=== PATIENT | male | born 1970 | race Caucasian/White ===

== ENCOUNTER 2019-08-30 14:12 | Inpatient (IN) | payer MEDICAID, MEDICARE, OTHER ==
[~2019-08-30] VITALS: Ht 170.2 cm; Wt 81.0 kg
[~2019-08-30 14:12] MED LIST: FLUT16H NASAL; FURO20 PO; LACT30L PO; PALI6 PO; PROP10TA73 PO; RIFAX550 PO; THIA100T67 PO
[2019-08-30] MEDS ORDERED: FERR-89 PO (15:29)
[2019-08-30] MEDS ORDERED: PALI39DI IM (15:29)
[2019-08-30] MEDS ORDERED: SODIUM CHLORIDE 0.9% 1,000 ML IV ONE ×2 (16:00→20:30)
[2019-08-30 16:05] LABS: BASOPHILS % (AUTO) 2.3 % (0.0-2.0); EOSINOPHILS % (AUTO) 4.9 % (1.0-6.0); HEMATOCRIT 27.9 % (41-53); HEMOGLOBIN 8.9 g/dL (13.5-17.5); LYMPHOCYTES # (AUTO) 0.4 K/uL (1.0-4.8); LYMPHOCYTES % (AUTO) 15.8 % (22.0-44.0); MEAN CORPUSCULAR HEMOGLOBIN 28.1 pg (26.0-34.0); MEAN CORPUSCULAR VOLUME 88 fL (80-100); MONOCYTES # (AUTO) 0.3 K/uL (0.1-1.0); MONOCYTES % (AUTO) 14.1 % (2.0-9.0); NEUTROPHILS # (AUTO) 1.5 K/uL (1.8-7.7); NEUTROPHILS % (AUTO) 62.9 % (40.0-70.0); PLATELET COUNT (AUTO) 108 K/uL (150-450); RED BLOOD CELL COUNT(AUTO) 3.18 MIL/uL (4.50-5.90); RED CELL DISTRIBUTION WIDTH 18.4 % (11.5-14.5)
[2019-08-30 16:17] LABS: ANION GAP 9 mmol/L (8-16); CALCIUM, TOTAL 8.6 mg/dL (8.8-10.5); CARBON DIOXIDE 25 mmol/L (22-29); CHLORIDE 107 mmol/L (98-107); CREATININE 0.62 mg/dL (0.60-1.30); GLOMERULAR FILTR. RATE CALC > 60 mL/min (>60); GLUCOSE,RANDOM 104 mg/dL (70-110); POTASSIUM 4.3 mmol/L (3.5-5.1); SODIUM SERUM 141 mmol/L (136-145); UREA NITROGEN, BLOOD 18 mg/dL (7-18)
[2019-08-30 16:22] LABS: ALANINE AMINOTRANSFERASE 58 U/L (12-78); ALBUMIN 2.4 g/dL (3.4-5.0); ALKALINE PHOSPHATASE 223 U/L (46-116); ASPARTATE AMINOTRANSFERASE 48 U/L (15-37); BILIRUBIN,TOTAL 0.4 mg/dL (0.1-1.0); LIPASE 212 U/L (73-393); TOTAL PROTEIN, SERUM 6.6 g/dL (6.4-8.2)
[2019-08-30 16:30] LABS: INR 1.1 (0.9-1.1); PROTHROMBIN TIME 11.4 SEC (9.4-11.6)
[2019-08-30 17:07] LABS: APPEARANCE,URINE CLOUDY (CLEAR); BILIRUBIN,URINE NEGATIVE (NEGATIVE); GLUCOSE, URINE (UA) NEGATIVE (NEGATIVE); KETONES,URINE NEGATIVE (NEGATIVE); LEUKOCYTE ESTERASE ,URINE MODERATE (NEGATIVE); NITRATE,URINE POSITIVE (NEGATIVE); OCCULT BLOOD,URINE TRACE (NEGATIVE); PROTEIN,URINE NEGATIVE (NEGATIVE); UROBILINOGEN,URINE 0.2 mg/dL (<=1.0)
[2019-08-30] MEDS ORDERED: SODIUM CHLORIDE 0.9% 100 ML ONE (17:09)
[2019-08-30] MEDS ORDERED: IOVERSOL 350 MG/ML 100 ML VIAL ONE (17:09)
[2019-08-30 17:13] LABS: AMPHET/METH SCREEN,URINE NEGATIVE (NEGATIVE); BARBITURATE SCREEN, URINE NEGATIVE (NEGATIVE); BENZODIAZEPINES SCREEN,URINE NEGATIVE (NEGATIVE); CANNABINOID SCREEN,URINE NEGATIVE (NEGATIVE); COCAINE SCREEN,URINE NEGATIVE (NEGATIVE); METHADONE SCREEN, URINE NEGATIVE (NEGATIVE); OPIATE SCREEN,URINE NEGATIVE (NEGATIVE)
[2019-08-30 17:14] LABS: PHENCYCLIDINE SCREEN,URINE NEGATIVE (NEGATIVE)
[2019-08-30 17:19] LABS: BACTERIA,URINE Many /HPF (None Seen)
[2019-08-30 17:20] LABS: RBC,URINE 0-2 /HPF (0-2); SQUAMOUS EPITHELIAL CELL,UR Few /LPF (None Seen); WBC,URINE 51-100 /HPF (0-5)
[2019-08-30] MEDS ORDERED: SODIUM CHLORIDE 0.9% 2,200 ML IV ONE (17:41)
[2019-08-30] MEDS ORDERED: CefTRIAXone 1 GM/DEXTROSE 50 ML IV ONE (17:45)
[2019-08-30 18:37] LABS: LACTIC ACID 0.9 mmol/L (0.4-2.0)
[2019-08-30 18:49] LABS: INFLUENZA TYPE A NEGATIVE FOR TYPE A (NEGATIVE); INFLUENZA TYPE B NEGATIVE FOR TYPE B (NEGATIVE)
[2019-08-30] MEDS ORDERED: PANTOPRAZOLE SODIUM 80 MG in SODIUM CHLORIDE 0.9% 100 ML IV SCH (19:00)
[2019-08-30] MEDS ORDERED: PANTOPRAZOLE SODIUM 40 MG/VIAL IVP ONE (19:00)
[2019-08-30] MEDS ORDERED: ONDANSETRON HCL 4 MG/2 ML VIAL IVP PRN ×2 (20:30→22:45)
[2019-08-30] MEDS ORDERED: 0.9% SODIUM CHLORIDE 10 ML SYRINGE IVP PRN (20:30)
[2019-08-30 21:19] VITALS: BP 102/67
[2019-08-30] MEDS ORDERED: ALBUTEROL SULFATE 2.5 MG/0.5 ML NEB SOLUTION NEB PRN (22:45)
[2019-08-30] MEDS ORDERED: BISACODYL 10 MG RECTAL RECTAL SUPPOSITORY PR PRN (22:45)
[2019-08-30] MEDS ORDERED: LACTULOSE 20 GM/30 ML SOLUTION UDCUP PO PRN (22:45)
[2019-08-30] MEDS ORDERED: MAGNESIUM HYDROXIDE SUSPENSION 30 ML UDCUP PO PRN (22:45)
[2019-08-30] MEDS ORDERED: IPRATROPIUM BROMIDE 0.5 MG/2.5 ML NEB SOLUTION NEB PRN (22:45)
[2019-08-30] MEDS: RIFAXIMIN 550 MG TABLET PO SCH (23:38)
[2019-08-30] MEDS: OCTREOTIDE ACETATE 500 MCG in DEXTROSE 5%-WATER 97.5 ML IV SCH (23:42)
[2019-08-31 00:08] LABS: HEMATOCRIT 28.3 % (41-53); HEMOGLOBIN 9.1 g/dL (13.5-17.5)
[2019-08-31 00:59] VITALS: BP 90/61
[2019-08-31 05:45] VITALS: BP 100/66
[2019-08-31 07:06] LABS: ALANINE AMINOTRANSFERASE 52 U/L (12-78); ALBUMIN 2.2 g/dL (3.4-5.0); ALKALINE PHOSPHATASE 174 U/L (46-116); ANION GAP 8 mmol/L (8-16); ASPARTATE AMINOTRANSFERASE 47 U/L (15-37); BILIRUBIN,TOTAL 0.7 mg/dL (0.1-1.0); CALCIUM, TOTAL 8.3 mg/dL (8.8-10.5); CARBON DIOXIDE 23 mmol/L (22-29); CHLORIDE 108 mmol/L (98-107); CREATININE 0.66 mg/dL (0.60-1.30); GLOMERULAR FILTR. RATE CALC > 60 mL/min (>60); GLUCOSE,RANDOM 83 mg/dL (70-110); SODIUM SERUM 139 mmol/L (136-145); TOTAL PROTEIN, SERUM 6.2 g/dL (6.4-8.2); UREA NITROGEN, BLOOD 15 mg/dL (7-18)
[2019-08-31 07:07] LABS: BASOPHILS % (AUTO) 1.7 % (0.0-2.0); EOSINOPHILS % (AUTO) 4.4 % (1.0-6.0); HEMOGLOBIN 9.1 g/dL (13.5-17.5); LYMPHOCYTES # (AUTO) 0.4 K/uL (1.0-4.8); MEAN CORPUSCULAR HEMOGLOBIN 28.4 pg (26.0-34.0); MEAN CORPUSCULAR HGB CONC 32.6 G/dL (31.0-37.0); MEAN CORPUSCULAR VOLUME 87 fL (80-100); MONOCYTES # (AUTO) 0.4 K/uL (0.1-1.0); MONOCYTES % (AUTO) 13.7 % (2.0-9.0); NEUTROPHILS # (AUTO) 1.8 K/uL (1.8-7.7); NEUTROPHILS % (AUTO) 66.2 % (40.0-70.0); PLATELET COUNT (AUTO) 110 K/uL (150-450); RED BLOOD CELL COUNT(AUTO) 3.22 MIL/uL (4.50-5.90); RED CELL DISTRIBUTION WIDTH 18.6 % (11.5-14.5)
[2019-08-31] MEDS ORDERED: FERROUS SULFATE 325 MG EC TABLET PO SCH (08:00)
[2019-08-31 08:19] VITALS: BP 104/61
[2019-08-31] MEDS: PROPRANOLOL HCL 10 MG TABLET PO SCH ×2 (09:00→21:49)
[2019-08-31] MEDS: OCTREOTIDE ACETATE 500 MCG in DEXTROSE 5%-WATER 97.5 ML IV SCH ×2 (11:26→21:08)
[2019-08-31] MEDS: PANTOPRAZOLE SODIUM 80 MG in SODIUM CHLORIDE 0.9% 100 ML IV SCH ×2 (11:26→21:08)
[2019-08-31] MEDS: FUROSEMIDE 20 MG TABLET PO SCH (11:28)
[2019-08-31] MEDS: RIFAXIMIN 550 MG TABLET PO SCH ×2 (11:28→21:49)
[2019-08-31] MEDS: LACTULOSE 20 GM/30 ML SOLUTION UDCUP PO SCH ×5 (11:28→21:09)
[2019-08-31] MEDS: THIAMINE HCL 100 MG TABLET PO SCH (11:29)
[2019-08-31] MEDS: PALIPERIDONE 6 MG ER TABLET PO SCH ×2 (11:30→21:09)
[2019-08-31] MEDS: DOCUSATE SODIUM 100 MG CAPSULE PO SCH ×2 (11:31→21:09)
[2019-08-31] MEDS: FLUTICASONE PROPIONATE 50 MCG/SPRAY 16 GM NASAL SPRAY NASAL SCH (11:31)
[2019-08-31 11:44] VITALS: BP 93/62
[2019-08-31 12:49] LABS: HEMATOCRIT 27.4 % (41-53); HEMOGLOBIN 8.9 g/dL (13.5-17.5)
[2019-08-31 15:03] VITALS: BP 107/76
[2019-08-31] MEDS ORDERED: SODIUM CHLORIDE 0.9% 1,000 ML ONE (15:55)
[2019-08-31] MEDS ORDERED: SODIUM CHLORIDE 0.9% 1,000 ML IV ONE (16:00)
[2019-08-31] MEDS: CefTRIAXone 1 GM/DEXTROSE 50 ML IV SCH (18:28)
[2019-08-31 19:03] LABS: % IRON SATURATION 33.6 % (30-44)
[2019-08-31 20:35] VITALS: BP 100/68
[2019-08-31] MEDS: ZOLPIDEM TARTRATE 5 MG TABLET PO PRN (21:11)
[2019-09-01] VITALS (11 sets, daily range): BP systolic 89–139; BP diastolic 54–108
[2019-09-01] MEDS: OCTREOTIDE ACETATE 500 MCG in DEXTROSE 5%-WATER 97.5 ML IV SCH (04:45)
[2019-09-01] MEDS: PANTOPRAZOLE SODIUM 80 MG in SODIUM CHLORIDE 0.9% 100 ML IV SCH (05:00)
[2019-09-01] MEDS ORDERED: MIDAZOLAM HCL 5 MG/ML VIAL ONE (06:02)
[2019-09-01] MEDS ORDERED: FentaNYL CITRATE-PF 100 MCG/2 ML VIAL ONE (06:02)
[2019-09-01] MEDS ORDERED: SODIUM CHLORIDE 0.9% 1,000 ML ONE (06:12)
[2019-09-01] MEDS ORDERED: DiphenhydrAMINE HCL 50 MG/ML VIAL ONE (07:41)
[2019-09-01 08:18] LABS: BASOPHILS % (AUTO) 1.2 % (0.0-2.0); EOSINOPHILS % (AUTO) 4.3 % (1.0-6.0); HEMATOCRIT 30.4 % (41-53); HEMOGLOBIN 9.8 g/dL (13.5-17.5); LYMPHOCYTES # (AUTO) 0.3 K/uL (1.0-4.8); MEAN CORPUSCULAR HEMOGLOBIN 28.4 pg (26.0-34.0); MEAN CORPUSCULAR HGB CONC 32.3 G/dL (31.0-37.0); MEAN CORPUSCULAR VOLUME 88 fL (80-100); MONOCYTES # (AUTO) 0.3 K/uL (0.1-1.0); NEUTROPHILS # (AUTO) 1.8 K/uL (1.8-7.7); NEUTROPHILS % (AUTO) 69.5 % (40.0-70.0); PLATELET COUNT (AUTO) 111 K/uL (150-450); RED BLOOD CELL COUNT(AUTO) 3.45 MIL/uL (4.50-5.90); RED CELL DISTRIBUTION WIDTH 18.2 % (11.5-14.5)
[2019-09-01] MEDS: FLUTICASONE PROPIONATE 50 MCG/SPRAY 16 GM NASAL SPRAY NASAL SCH (08:52)
[2019-09-01] MEDS: PALIPERIDONE 6 MG ER TABLET PO SCH ×2 (08:53→21:31)
[2019-09-01] MEDS: PROPRANOLOL HCL 10 MG TABLET PO SCH ×2 (08:54→21:00)
[2019-09-01] MEDS: THIAMINE HCL 100 MG TABLET PO SCH (08:54)
[2019-09-01] MEDS: LACTULOSE 20 GM/30 ML SOLUTION UDCUP PO SCH ×4 (08:54→21:30)
[2019-09-01] MEDS: FUROSEMIDE 20 MG TABLET PO SCH (08:55)
[2019-09-01] MEDS: PANTOPRAZOLE SODIUM 40 MG DR TABLET PO SCH (08:55)
[2019-09-01 09:00] LABS: ALANINE AMINOTRANSFERASE 55 U/L (12-78); ALBUMIN 2.6 g/dL (3.4-5.0); ALKALINE PHOSPHATASE 179 U/L (46-116); ANION GAP 7 mmol/L (8-16); ASPARTATE AMINOTRANSFERASE 56 U/L (15-37); BILIRUBIN,TOTAL 0.7 mg/dL (0.1-1.0); CALCIUM, TOTAL 8.5 mg/dL (8.8-10.5); CARBON DIOXIDE 24 mmol/L (22-29); CHLORIDE 104 mmol/L (98-107); CREATININE 0.63 mg/dL (0.60-1.30); GLOMERULAR FILTR. RATE CALC > 60 mL/min (>60); GLUCOSE,RANDOM 86 mg/dL (70-110); LIPASE 68 U/L (73-393); POTASSIUM 3.7 mmol/L (3.5-5.1); SODIUM SERUM 135 mmol/L (136-145); TOTAL PROTEIN, SERUM 7.1 g/dL (6.4-8.2); UREA NITROGEN, BLOOD 11 mg/dL (7-18)
[2019-09-01] MEDS: RIFAXIMIN 550 MG TABLET PO SCH ×2 (09:40→21:31)
[2019-09-01] MEDS ORDERED: SODIUM CHLORIDE 0.9% 250 ML IV ONE (12:15)
[2019-09-01 13:02] LABS: ABG PCO2 34 mmHg (35-45); ABG PH 7.431 (7.35-7.450); PO2, ARTERIAL BG 104.9 mmHg (84.0-92.0); SITE, BLOOD GAS LFT BRACHIAL; SOURCE, BLOOD GAS ARTERIAL; TEMPERATURE, FAHRENHEIT, BG 97.9 FAHREN (96.0-98.6)
[2019-09-01 13:03] LABS: ABG BASE EXCESS -1.9 mmol/L (-2.0-3.0); ABG CARBOXYHEMOGLOBIN 0.3 % (0.0-1.5); ABG HCO3 23.2 mmol/L (22.0-26.0); ABG METHEMOGLOBIN 0.1 % (0.0-1.5); ABG OXYGEN CONTENT 13.4 mL/dL (15.0-23.0); ABG OXYHEMOGLOBIN 97.1 % (94.0-100.0); ABG TOTAL HEMOGLOBIN 9.7 G/dL (12.0-18.0)
[2019-09-01 13:04] LABS: ABG A-A DIFF O2 3.9 mmHg (10-20.0); ABG OXYGEN SATURATION 97.1 % (95.0-98.0)
[2019-09-01] MEDS: CefTRIAXone 1 GM/DEXTROSE 50 ML IV SCH (18:35)
[2019-09-02 00:30] VITALS: BP 115/74
[2019-09-02] MEDS: ZOLPIDEM TARTRATE 5 MG TABLET PO PRN ×2 (00:30→23:26)
[2019-09-02 06:41] LABS: BASOPHILS % (AUTO) 1.7 % (0.0-2.0); EOSINOPHILS % (AUTO) 5.8 % (1.0-6.0); HEMATOCRIT 29.5 % (41-53); HEMOGLOBIN 9.5 g/dL (13.5-17.5); LYMPHOCYTES # (AUTO) 0.4 K/uL (1.0-4.8); LYMPHOCYTES % (AUTO) 14.8 % (22.0-44.0); MEAN CORPUSCULAR HEMOGLOBIN 27.9 pg (26.0-34.0); MEAN CORPUSCULAR HGB CONC 32.4 G/dL (31.0-37.0); MEAN CORPUSCULAR VOLUME 86 fL (80-100); MONOCYTES # (AUTO) 0.4 K/uL (0.1-1.0); NEUTROPHILS # (AUTO) 1.7 K/uL (1.8-7.7); NEUTROPHILS % (AUTO) 62.7 % (40.0-70.0); PLATELET COUNT (AUTO) 104 K/uL (150-450); RED BLOOD CELL COUNT(AUTO) 3.42 MIL/uL (4.50-5.90); RED CELL DISTRIBUTION WIDTH 18.5 % (11.5-14.5)
[2019-09-02 06:55] LABS: ALANINE AMINOTRANSFERASE 48 U/L (12-78); ALBUMIN 2.5 g/dL (3.4-5.0); ALKALINE PHOSPHATASE 172 U/L (46-116); ANION GAP 8 mmol/L (8-16); ASPARTATE AMINOTRANSFERASE 40 U/L (15-37); BILIRUBIN,TOTAL 0.5 mg/dL (0.1-1.0); CALCIUM, TOTAL 8.7 mg/dL (8.8-10.5); CARBON DIOXIDE 25 mmol/L (22-29); CHLORIDE 105 mmol/L (98-107); GLOMERULAR FILTR. RATE CALC > 60 mL/min (>60); GLUCOSE,RANDOM 109 mg/dL (70-110); POTASSIUM 3.7 mmol/L (3.5-5.1); SODIUM SERUM 138 mmol/L (136-145); TOTAL PROTEIN, SERUM 6.5 g/dL (6.4-8.2); UREA NITROGEN, BLOOD 7 mg/dL (7-18)
[2019-09-02 08:09] VITALS: BP 103/65
[2019-09-02] MEDS: FUROSEMIDE 20 MG TABLET PO SCH (09:00)
[2019-09-02] MEDS: PROPRANOLOL HCL 10 MG TABLET PO SCH ×2 (09:00→21:56)
[2019-09-02] MEDS: FLUTICASONE PROPIONATE 50 MCG/SPRAY 16 GM NASAL SPRAY NASAL SCH (09:52)
[2019-09-02] MEDS: LACTULOSE 20 GM/30 ML SOLUTION UDCUP PO SCH ×4 (09:52→21:57)
[2019-09-02] MEDS: THIAMINE HCL 100 MG TABLET PO SCH (09:52)
[2019-09-02] MEDS: PANTOPRAZOLE SODIUM 40 MG DR TABLET PO SCH (09:52)
[2019-09-02] MEDS: PALIPERIDONE 6 MG ER TABLET PO SCH ×2 (09:52→21:57)
[2019-09-02] MEDS ORDERED: CefoTEtan DISOD 1 GM/DEXTROSE 50 ML IV SCH (12:00)
[2019-09-02 12:08] VITALS: BP 90/58
[2019-09-02] MEDS: RIFAXIMIN 550 MG TABLET PO SCH ×2 (12:13→21:56)
[2019-09-02 16:01] VITALS: BP 103/47
[2019-09-02] MEDS ORDERED: SODIUM CHLORIDE 0.9% 100 ML ONE (17:02)
[2019-09-02 20:03] VITALS: BP 105/56
[2019-09-02 23:03] VITALS: BP 98/67
[2019-09-03] VITALS (7 sets, daily range): BP systolic 93–103; BP diastolic 48–65
[2019-09-03 06:51] LABS: BASOPHILS % (AUTO) 1.6 % (0.0-2.0); EOSINOPHILS % (AUTO) 5.6 % (1.0-6.0); HEMATOCRIT 29.6 % (41-53); HEMOGLOBIN 9.8 g/dL (13.5-17.5); LYMPHOCYTES # (AUTO) 0.4 K/uL (1.0-4.8); LYMPHOCYTES % (AUTO) 15.7 % (22.0-44.0); MEAN CORPUSCULAR HEMOGLOBIN 28.4 pg (26.0-34.0); MEAN CORPUSCULAR HGB CONC 33.1 G/dL (31.0-37.0); MEAN CORPUSCULAR VOLUME 86 fL (80-100); MONOCYTES # (AUTO) 0.3 K/uL (0.1-1.0); MONOCYTES % (AUTO) 13.9 % (2.0-9.0); NEUTROPHILS # (AUTO) 1.6 K/uL (1.8-7.7); NEUTROPHILS % (AUTO) 63.2 % (40.0-70.0); PLATELET COUNT (AUTO) 99 K/uL (150-450); RED BLOOD CELL COUNT(AUTO) 3.45 MIL/uL (4.50-5.90); RED CELL DISTRIBUTION WIDTH 18.7 % (11.5-14.5)
[2019-09-03 07:40] LABS: ALANINE AMINOTRANSFERASE 53 U/L (12-78); ALBUMIN 2.5 g/dL (3.4-5.0); ALKALINE PHOSPHATASE 203 U/L (46-116); ANION GAP 8 mmol/L (8-16); ASPARTATE AMINOTRANSFERASE 53 U/L (15-37); BILIRUBIN,TOTAL 0.4 mg/dL (0.1-1.0); CALCIUM, TOTAL 8.7 mg/dL (8.8-10.5); CARBON DIOXIDE 24 mmol/L (22-29); CHLORIDE 106 mmol/L (98-107); CREATININE 0.64 mg/dL (0.60-1.30); GLOMERULAR FILTR. RATE CALC > 60 mL/min (>60); GLUCOSE,RANDOM 84 mg/dL (70-110); POTASSIUM 4.3 mmol/L (3.5-5.1); SODIUM SERUM 138 mmol/L (136-145); TOTAL PROTEIN, SERUM 6.8 g/dL (6.4-8.2); UREA NITROGEN, BLOOD 12 mg/dL (7-18)
[2019-09-03] MEDS: LACTULOSE 20 GM/30 ML SOLUTION UDCUP PO SCH ×4 (08:22→20:34)
[2019-09-03] MEDS: FLUTICASONE PROPIONATE 50 MCG/SPRAY 16 GM NASAL SPRAY NASAL SCH (08:22)
[2019-09-03] MEDS: PALIPERIDONE 6 MG ER TABLET PO SCH ×2 (08:23→20:34)
[2019-09-03] MEDS: FUROSEMIDE 20 MG TABLET PO SCH (08:23)
[2019-09-03] MEDS: PANTOPRAZOLE SODIUM 40 MG DR TABLET PO SCH (08:24)
[2019-09-03] MEDS: PROPRANOLOL HCL 10 MG TABLET PO SCH ×2 (08:25→20:37)
[2019-09-03] MEDS: THIAMINE HCL 100 MG TABLET PO SCH (08:25)
[2019-09-03] MEDS: RIFAXIMIN 550 MG TABLET PO SCH ×2 (12:34→22:27)
[2019-09-03] MEDS ORDERED: CefoTEtan DISOD 2 GM/DEXTROSE 50 ML IV ONE (13:00)
[2019-09-04 05:27] VITALS: BP 100/63
[2019-09-04] MEDS: LACTULOSE 20 GM/30 ML SOLUTION UDCUP PO SCH ×4 (08:14→20:19)
[2019-09-04] MEDS: PANTOPRAZOLE SODIUM 40 MG DR TABLET PO SCH (08:14)
[2019-09-04] MEDS: THIAMINE HCL 100 MG TABLET PO SCH (08:14)
[2019-09-04] MEDS: FUROSEMIDE 20 MG TABLET PO SCH (08:14)
[2019-09-04] MEDS: PALIPERIDONE 6 MG ER TABLET PO SCH (08:15)
[2019-09-04] MEDS: FLUTICASONE PROPIONATE 50 MCG/SPRAY 16 GM NASAL SPRAY NASAL SCH (08:19)
[2019-09-04 08:28] VITALS: BP 98/62
[2019-09-04] MEDS: PROPRANOLOL HCL 10 MG TABLET PO SCH ×2 (09:00→20:22)
[2019-09-04 09:51] LABS: BASOPHILS % (AUTO) 1.7 % (0.0-2.0); EOSINOPHILS % (AUTO) 6.5 % (1.0-6.0); HEMATOCRIT 28.2 % (41-53); HEMOGLOBIN 9.3 g/dL (13.5-17.5); LYMPHOCYTES # (AUTO) 0.4 K/uL (1.0-4.8); MEAN CORPUSCULAR HEMOGLOBIN 28.3 pg (26.0-34.0); MEAN CORPUSCULAR HGB CONC 32.9 G/dL (31.0-37.0); MEAN CORPUSCULAR VOLUME 86 fL (80-100); MONOCYTES # (AUTO) 0.3 K/uL (0.1-1.0); NEUTROPHILS # (AUTO) 1.4 K/uL (1.8-7.7); NEUTROPHILS % (AUTO) 61.8 % (40.0-70.0); PLATELET COUNT (AUTO) 87 K/uL (150-450); RED BLOOD CELL COUNT(AUTO) 3.28 MIL/uL (4.50-5.90); RED CELL DISTRIBUTION WIDTH 18.2 % (11.5-14.5)
[2019-09-04 10:06] LABS: ALANINE AMINOTRANSFERASE 55 U/L (12-78); ALBUMIN 2.4 g/dL (3.4-5.0); ALKALINE PHOSPHATASE 178 U/L (46-116); ANION GAP 6 mmol/L (8-16); ASPARTATE AMINOTRANSFERASE 48 U/L (15-37); BILIRUBIN,TOTAL 0.5 mg/dL (0.1-1.0); CALCIUM, TOTAL 8.7 mg/dL (8.8-10.5); CARBON DIOXIDE 25 mmol/L (22-29); CHLORIDE 106 mmol/L (98-107); CREATININE 0.64 mg/dL (0.60-1.30); GLOMERULAR FILTR. RATE CALC > 60 mL/min (>60); GLUCOSE,RANDOM 111 mg/dL (70-110); POTASSIUM 3.9 mmol/L (3.5-5.1); SODIUM SERUM 137 mmol/L (136-145); TOTAL PROTEIN, SERUM 6.5 g/dL (6.4-8.2); UREA NITROGEN, BLOOD 12 mg/dL (7-18)
[2019-09-04 11:30] VITALS: BP 104/59
[2019-09-04] MEDS: RIFAXIMIN 550 MG TABLET PO SCH ×2 (12:01→22:33)
[2019-09-04 15:45] VITALS: BP 90/47
[2019-09-04 16:20] VITALS: BP 101/60
[2019-09-04] MEDS: MORPHINE SULFATE 2 MG/ML SYRINGE IVP PRN ×2 (16:39→22:38)
[2019-09-04 20:12] VITALS: BP 107/63
[2019-09-04] MEDS ORDERED: PALIPERIDONE 6 MG ER TABLET PO SCH (21:00)
[2019-09-05 00:36] VITALS: BP 98/55
[2019-09-05] MEDS: MORPHINE SULFATE 2 MG/ML SYRINGE IVP PRN (02:38)
[2019-09-05 04:55] VITALS: BP 104/61
[2019-09-05 07:00] VITALS: BP 100/58
[2019-09-05 08:07] LABS: ALANINE AMINOTRANSFERASE 63 U/L (12-78); ALBUMIN 2.5 g/dL (3.4-5.0); ALKALINE PHOSPHATASE 182 U/L (46-116); ANION GAP 7 mmol/L (8-16); ASPARTATE AMINOTRANSFERASE 59 U/L (15-37); BILIRUBIN,TOTAL 0.5 mg/dL (0.1-1.0); CALCIUM, TOTAL 8.5 mg/dL (8.8-10.5); CARBON DIOXIDE 26 mmol/L (22-29); CHLORIDE 105 mmol/L (98-107); CREATININE 0.62 mg/dL (0.60-1.30); GLOMERULAR FILTR. RATE CALC > 60 mL/min (>60); GLUCOSE,RANDOM 92 mg/dL (70-110); SODIUM SERUM 138 mmol/L (136-145); TOTAL PROTEIN, SERUM 6.5 g/dL (6.4-8.2); UREA NITROGEN, BLOOD 14 mg/dL (7-18)
[2019-09-05 08:19] LABS: BASOPHILS % (AUTO) 1.8 % (0.0-2.0); EOSINOPHILS % (AUTO) 6.1 % (1.0-6.0); HEMATOCRIT 27.6 % (41-53); LYMPHOCYTES # (AUTO) 0.3 K/uL (1.0-4.8); MEAN CORPUSCULAR HEMOGLOBIN 28.1 pg (26.0-34.0); MEAN CORPUSCULAR HGB CONC 32.6 G/dL (31.0-37.0); MEAN CORPUSCULAR VOLUME 86 fL (80-100); MONOCYTES # (AUTO) 0.3 K/uL (0.1-1.0); NEUTROPHILS # (AUTO) 1.1 K/uL (1.8-7.7); NEUTROPHILS % (AUTO) 59.1 % (40.0-70.0); RED CELL DISTRIBUTION WIDTH 18.4 % (11.5-14.5)
[2019-09-05 08:20] LABS: PLATELET COUNT (AUTO) 83 K/uL (150-450)
[2019-09-05] MEDS: THIAMINE HCL 100 MG TABLET PO SCH (09:03)
[2019-09-05] MEDS: RIFAXIMIN 550 MG TABLET PO SCH ×2 (09:03→23:31)
[2019-09-05] MEDS: FUROSEMIDE 20 MG TABLET PO SCH (09:03)
[2019-09-05] MEDS: LACTULOSE 20 GM/30 ML SOLUTION UDCUP PO SCH ×2 (09:03→13:00)
[2019-09-05] MEDS: PANTOPRAZOLE SODIUM 40 MG DR TABLET PO SCH (09:04)
[2019-09-05] MEDS: PROPRANOLOL HCL 10 MG TABLET PO SCH (09:04)
[2019-09-05] MEDS: FLUTICASONE PROPIONATE 50 MCG/SPRAY 16 GM NASAL SPRAY NASAL SCH (09:04)
[2019-09-05 11:50] VITALS: BP 90/60
[2019-09-05 16:08] VITALS: BP 100/60
[2019-09-05] MEDS: PALIPERIDONE 6 MG ER TABLET PO SCH (20:27)
[2019-09-05] MEDS ORDERED: PALIPERIDONE 3 MG ER TABLET PO SCH (21:00)
[2019-09-05] MEDS: ZOLPIDEM TARTRATE 5 MG TABLET PO PRN (21:00)
[2019-09-05 21:46] VITALS: BP 100/68
[2019-09-06 01:30] VITALS: BP 104/70
[2019-09-06 06:05] VITALS: BP 108/73
[2019-09-06 07:37] VITALS: BP 108/68
[2019-09-06 07:52] LABS: BASOPHILS % (AUTO) 1.5 % (0.0-2.0); EOSINOPHILS % (AUTO) 5.3 % (1.0-6.0); HEMATOCRIT 29.7 % (41-53); HEMOGLOBIN 9.6 g/dL (13.5-17.5); LYMPHOCYTES # (AUTO) 0.4 K/uL (1.0-4.8); LYMPHOCYTES % (AUTO) 15.9 % (22.0-44.0); MEAN CORPUSCULAR HEMOGLOBIN 28.1 pg (26.0-34.0); MEAN CORPUSCULAR HGB CONC 32.4 G/dL (31.0-37.0); MEAN CORPUSCULAR VOLUME 87 fL (80-100); MONOCYTES # (AUTO) 0.4 K/uL (0.1-1.0); MONOCYTES % (AUTO) 13.8 % (2.0-9.0); NEUTROPHILS # (AUTO) 1.8 K/uL (1.8-7.7); NEUTROPHILS % (AUTO) 63.5 % (40.0-70.0); RED BLOOD CELL COUNT(AUTO) 3.43 MIL/uL (4.50-5.90); RED CELL DISTRIBUTION WIDTH 18.4 % (11.5-14.5)
[2019-09-06 08:01] LABS: ALANINE AMINOTRANSFERASE 69 U/L (12-78); ALBUMIN 2.8 g/dL (3.4-5.0); ALKALINE PHOSPHATASE 227 U/L (46-116); ANION GAP 8 mmol/L (8-16); ASPARTATE AMINOTRANSFERASE 72 U/L (15-37); BILIRUBIN,TOTAL 0.5 mg/dL (0.1-1.0); CALCIUM, TOTAL 8.7 mg/dL (8.8-10.5); CARBON DIOXIDE 25 mmol/L (22-29); CHLORIDE 102 mmol/L (98-107); CREATININE 0.72 mg/dL (0.60-1.30); GLOMERULAR FILTR. RATE CALC > 60 mL/min (>60); GLUCOSE,RANDOM 89 mg/dL (70-110); SODIUM SERUM 135 mmol/L (136-145); TOTAL PROTEIN, SERUM 7.3 g/dL (6.4-8.2); UREA NITROGEN, BLOOD 12 mg/dL (7-18)
[2019-09-06 08:47] LABS: PLATELET COUNT (AUTO) 76 K/uL (150-450)
[2019-09-06] MEDS: FUROSEMIDE 20 MG TABLET PO SCH (09:45)
[2019-09-06] MEDS: RIFAXIMIN 550 MG TABLET PO SCH ×2 (09:45→23:11)
[2019-09-06] MEDS: PANTOPRAZOLE SODIUM 40 MG DR TABLET PO SCH (09:45)
[2019-09-06] MEDS: PROPRANOLOL HCL 10 MG TABLET PO SCH (09:45)
[2019-09-06] MEDS: THIAMINE HCL 100 MG TABLET PO SCH (09:45)
[2019-09-06] MEDS: LACTULOSE 20 GM/30 ML SOLUTION UDCUP PO SCH (09:45)
[2019-09-06] MEDS: FLUTICASONE PROPIONATE 50 MCG/SPRAY 16 GM NASAL SPRAY NASAL SCH (09:46)
[2019-09-06 11:49] VITALS: BP 102/69
[2019-09-06 16:50] VITALS: BP 109/71
[2019-09-06] MEDS: PALIPERIDONE 6 MG ER TABLET PO SCH (20:48)
[2019-09-06] MEDS ORDERED: PALIPERIDONE PALMITATE 234 MG/1.5 ML SYRINGE IM ONE (21:00)
[2019-09-06 21:17] VITALS: BP 100/55
[2019-09-07] VITALS (7 sets, daily range): BP systolic 91–104; BP diastolic 53–73
[2019-09-07] MEDS: THIAMINE HCL 100 MG TABLET PO SCH (09:24)
[2019-09-07] MEDS: FUROSEMIDE 20 MG TABLET PO SCH (09:24)
[2019-09-07] MEDS: PROPRANOLOL HCL 10 MG TABLET PO SCH (09:24)
[2019-09-07] MEDS: RIFAXIMIN 550 MG TABLET PO SCH ×2 (09:24→23:23)
[2019-09-07] MEDS: FLUTICASONE PROPIONATE 50 MCG/SPRAY 16 GM NASAL SPRAY NASAL SCH (09:24)
[2019-09-07] MEDS: PANTOPRAZOLE SODIUM 40 MG DR TABLET PO SCH (09:24)
[2019-09-07] MEDS: LACTULOSE 20 GM/30 ML SOLUTION UDCUP PO SCH (09:24)
[2019-09-07] MEDS: PALIPERIDONE 6 MG ER TABLET PO SCH (20:46)
[2019-09-08] MEDS: ZOLPIDEM TARTRATE 5 MG TABLET PO PRN (00:38)
[2019-09-08 04:50] VITALS: BP 97/66
[2019-09-08 06:38] LABS: BASOPHILS % (AUTO) 1.5 % (0.0-2.0); EOSINOPHILS % (AUTO) 3.1 % (1.0-6.0); HEMATOCRIT 27.8 % (41-53); HEMOGLOBIN 9.3 g/dL (13.5-17.5); LYMPHOCYTES # (AUTO) 0.3 K/uL (1.0-4.8); LYMPHOCYTES % (AUTO) 12.6 % (22.0-44.0); MEAN CORPUSCULAR HEMOGLOBIN 28.2 pg (26.0-34.0); MEAN CORPUSCULAR HGB CONC 33.5 G/dL (31.0-37.0); MEAN CORPUSCULAR VOLUME 84 fL (80-100); MONOCYTES # (AUTO) 0.4 K/uL (0.1-1.0); MONOCYTES % (AUTO) 14.3 % (2.0-9.0); NEUTROPHILS # (AUTO) 1.7 K/uL (1.8-7.7); NEUTROPHILS % (AUTO) 68.5 % (40.0-70.0); PLATELET COUNT (AUTO) 76 K/uL (150-450); RED CELL DISTRIBUTION WIDTH 18.2 % (11.5-14.5)
[2019-09-08 07:02] LABS: ANION GAP 7 mmol/L (8-16); CALCIUM, TOTAL 8.6 mg/dL (8.8-10.5); CARBON DIOXIDE 25 mmol/L (22-29); CHLORIDE 104 mmol/L (98-107); GLOMERULAR FILTR. RATE CALC > 60 mL/min (>60); GLUCOSE,RANDOM 90 mg/dL (70-110); SODIUM SERUM 136 mmol/L (136-145); UREA NITROGEN, BLOOD 14 mg/dL (7-18)
[2019-09-08] MEDS: FUROSEMIDE 20 MG TABLET PO SCH (07:59)
[2019-09-08] MEDS: FLUTICASONE PROPIONATE 50 MCG/SPRAY 16 GM NASAL SPRAY NASAL SCH (07:59)
[2019-09-08] MEDS: PANTOPRAZOLE SODIUM 40 MG DR TABLET PO SCH (07:59)
[2019-09-08] MEDS: LACTULOSE 20 GM/30 ML SOLUTION UDCUP PO SCH (07:59)
[2019-09-08] MEDS: THIAMINE HCL 100 MG TABLET PO SCH (07:59)
[2019-09-08 08:47] VITALS: BP 109/58
[2019-09-08] MEDS: PROPRANOLOL HCL 10 MG TABLET PO SCH (09:00)
[2019-09-08] MEDS: RIFAXIMIN 550 MG TABLET PO SCH ×2 (11:19→21:58)
[2019-09-08 11:26] VITALS: BP 106/65
[2019-09-08 15:25] VITALS: BP 100/68
[2019-09-08 19:19] VITALS: BP 99/66
[2019-09-08] MEDS: PALIPERIDONE 6 MG ER TABLET PO SCH (21:58)
[2019-09-08 23:44] VITALS: BP 105/73
[2019-09-09] MEDS: ZOLPIDEM TARTRATE 5 MG TABLET PO PRN (00:43)
[2019-09-09 04:47] VITALS: BP 104/69
[2019-09-09 07:22] LABS: BASOPHILS % (AUTO) 1.2 % (0.0-2.0); HEMATOCRIT 30.7 % (41-53); HEMOGLOBIN 9.9 g/dL (13.5-17.5); LYMPHOCYTES # (AUTO) 0.4 K/uL (1.0-4.8); LYMPHOCYTES % (AUTO) 15.8 % (22.0-44.0); MEAN CORPUSCULAR HEMOGLOBIN 27.5 pg (26.0-34.0); MEAN CORPUSCULAR HGB CONC 32.3 G/dL (31.0-37.0); MEAN CORPUSCULAR VOLUME 85 fL (80-100); MONOCYTES # (AUTO) 0.4 K/uL (0.1-1.0); MONOCYTES % (AUTO) 16.9 % (2.0-9.0); NEUTROPHILS # (AUTO) 1.4 K/uL (1.8-7.7); NEUTROPHILS % (AUTO) 61.1 % (40.0-70.0); PLATELET COUNT (AUTO) 73 K/uL (150-450); RED BLOOD CELL COUNT(AUTO) 3.62 MIL/uL (4.50-5.90); RED CELL DISTRIBUTION WIDTH 18.5 % (11.5-14.5)
[2019-09-09 07:37] VITALS: BP 114/77
[2019-09-09] MEDS: PANTOPRAZOLE SODIUM 40 MG DR TABLET PO SCH (07:58)
[2019-09-09] MEDS: THIAMINE HCL 100 MG TABLET PO SCH (07:58)
[2019-09-09] MEDS: PROPRANOLOL HCL 10 MG TABLET PO SCH ×2 (07:58→08:04)
[2019-09-09] MEDS: FUROSEMIDE 20 MG TABLET PO SCH (07:59)
[2019-09-09] MEDS: FLUTICASONE PROPIONATE 50 MCG/SPRAY 16 GM NASAL SPRAY NASAL SCH (07:59)
[2019-09-09] MEDS: LACTULOSE 20 GM/30 ML SOLUTION UDCUP PO SCH (07:59)
[2019-09-09] MEDS: RIFAXIMIN 550 MG TABLET PO SCH ×2 (07:59→21:59)
[2019-09-09 15:18] VITALS: BP 100/69
[2019-09-09] MEDS: MORPHINE SULFATE 2 MG/ML SYRINGE IVP PRN ×2 (17:03→22:02)
[2019-09-09 20:16] VITALS: BP 108/65
[2019-09-09] MEDS: PALIPERIDONE 6 MG ER TABLET PO SCH (21:59)
[2019-09-10 01:23] VITALS: BP 104/72
[2019-09-10 04:52] VITALS: BP 97/72
[2019-09-10 06:53] LABS: BASOPHILS % (AUTO) 1.3 % (0.0-2.0); EOSINOPHILS % (AUTO) 5.6 % (1.0-6.0); HEMATOCRIT 29.5 % (41-53); HEMOGLOBIN 9.5 g/dL (13.5-17.5); LYMPHOCYTES # (AUTO) 0.4 K/uL (1.0-4.8); LYMPHOCYTES % (AUTO) 18.6 % (22.0-44.0); MEAN CORPUSCULAR HEMOGLOBIN 27.3 pg (26.0-34.0); MEAN CORPUSCULAR HGB CONC 32.2 G/dL (31.0-37.0); MEAN CORPUSCULAR VOLUME 85 fL (80-100); MONOCYTES # (AUTO) 0.3 K/uL (0.1-1.0); MONOCYTES % (AUTO) 14.8 % (2.0-9.0); NEUTROPHILS # (AUTO) 1.2 K/uL (1.8-7.7); NEUTROPHILS % (AUTO) 59.7 % (40.0-70.0); PLATELET COUNT (AUTO) 72 K/uL (150-450); RED BLOOD CELL COUNT(AUTO) 3.49 MIL/uL (4.50-5.90); RED CELL DISTRIBUTION WIDTH 18.3 % (11.5-14.5)
[2019-09-10 07:46] VITALS: BP 100/72
[2019-09-10] MEDS: FUROSEMIDE 20 MG TABLET PO SCH (07:47)
[2019-09-10] MEDS: THIAMINE HCL 100 MG TABLET PO SCH (07:47)
[2019-09-10] MEDS: LACTULOSE 20 GM/30 ML SOLUTION UDCUP PO SCH (07:47)
[2019-09-10] MEDS: RIFAXIMIN 550 MG TABLET PO SCH (07:47)
[2019-09-10] MEDS: PANTOPRAZOLE SODIUM 40 MG DR TABLET PO SCH (07:47)
[2019-09-10] MEDS: FLUTICASONE PROPIONATE 50 MCG/SPRAY 16 GM NASAL SPRAY NASAL SCH (07:48)
[2019-09-10] MEDS: PROPRANOLOL HCL 10 MG TABLET PO SCH (07:49)
[2019-09-10 11:29] VITALS: BP 111/72
[2019-10-04] MEDS ORDERED: PALIPERIDONE PALMITATE 234 MG/1.5 ML SYRINGE IM SCH (09:00)
== END 2019-09-10 12:00 | disposition home or self-care (01) | DRG 242 ==
LOC: EMS 14:15 → 5S 19:01
PROVIDERS: ADMIT Hospitalist; ATTEND Hospitalist
PROC: 0DJ08ZZ Inspection of Upper Intestinal Tract, Via Natural or Artificial Opening Endoscopic (ICD-10-PCS; principal; 2019-09-01 06:45)
DX: I85.01 Esophageal varices with bleeding (principal); D61.818 Other pancytopenia; E44.0 Moderate protein-calorie malnutrition; D69.6 Thrombocytopenia, unspecified; F20.9 Schizophrenia, unspecified; K72.90 Hepatic failure, unspecified without coma; N39.0 Urinary tract infection, site not specified; F10.10 Alcohol abuse, uncomplicated; K44.9 Diaphragmatic hernia without obstruction or gangrene; D64.9 Anemia, unspecified; F32.9 Major depressive disorder, single episode, unspecified; K70.30 Alcoholic cirrhosis of liver without ascites; X58.XXXA Exposure to other specified factors, initial encounter; T18.2XXA Foreign body in stomach, initial encounter; Z91.19 Patient's noncompliance with other medical treatment and regimen; Z87.891 Personal history of nicotine dependence; Z79.899 Other long term (current) drug therapy; Z88.8 Allergy status to other drugs, medicaments and biological substances; Z88.6 Allergy status to analgesic agent; Z68.28 Body mass index [BMI] 28.0-28.9, adult; Y93.89 Activity, other specified; Y92.89 Other specified places as the place of occurrence of the external cause; Y99.8 Other external cause status
CPT/HCPCS: 70450; 70551; 74177; 82105; 82728; 82805; 83540; 83550; 83605; 84145; 85014; 85018; 86850; 86900; 86901; 87040; 87086; 87804; 93005; 96365; 97116; 97162; 99291; C9113; G0378; G0480; J0696; J1200; J2250; J2270; J2354; J3010; J3490; J7030; J7050; J7060